=== PATIENT | male | born 1950 | race Caucasian/White ===

== ENCOUNTER 2022-06-13 08:09 | Outpatient (CLI) | payer MEDICARE, SELFPAY ==
[2022-06-13 08:37] LABS: Uric Acid 5.6 mg/dL (3.5-8.5)
[2022-06-13 08:38] LABS: Alanine Aminotransferase 32 U/L (6-50); Albumin Level 3.9 g/dL (3.5-5.1); Alkaline Phosphatase 74 U/L (38-126); Anion Gap 3 mmol/L (8-16); Aspartate Amino Transferase 29 U/L (17-59); Bilirubin,Total 0.7 mg/dL (0.2-1.3); Blood Urea Nitrogen 12 mg/dL (9-20); Carbon Dioxide 30 mmol/L (22-30); Chloride 103 mmol/L (98-107); Cholesterol 177 mg/dL (0-200); Estimated Glomerular Filt Rate > 60; Glucose 98 mg/dL (65-110); HDL Direct 69 mg/dL; Potassium 4.4 mmol/L (3.4-5.0); Sodium 136 mmol/L (137-145); Triglycerides 59 mg/dL (<150)
[2022-06-13 08:50] LABS: LDL Cholesterol Direct 76 mg/dL
== END 2022-06-13 08:10 | disposition home or self-care (01) ==
PROVIDERS: PCP Internal Medicine; Visit Provider Nurse Practitioner
DX: E78.5 Hyperlipidemia, unspecified (principal)
CPT/HCPCS: 36415; 80053; 80061; 84550

== ENCOUNTER 2022-10-02 00:07 | Day surgery (SDC) | payer MEDICARE, SELFPAY ==
[2022-09-21 14:44] VITALS: BMI 26.4
[2022-10-02 09:06] VITALS: BP 154/70; PULSE 83; RESP 19; TEMP 36.2; O2SAT 99
[2022-10-02] MEDS: LACTATED RINGERS 1,000 ML 150 ML IV CONT (09:16)
--- NOTE | 2022-10-02 10:28 | WPDANESEPPF ---
Anes - Initial Pre Proc Eval Procedure: Operation Date: 10/02/22 10:30 Proposed Procedures p Colonoscopy - Daniel Velez MD Date/Time: 10/02/22 10:28 Surgeon: Daniel Velez MD Pre Op Diagnosis: hx colon polyps Patient Data Age: 71 Gender: M Height: 1.68 m Weight: 74.2 kg Last Vital Signs Temp 36.2 C L 10/02/22 09:06 Pulse 83 10/02/22 09:06 Resp 19 10/02/22 09:06 BP 154/70 H 10/02/22 09:06 Pulse Ox 99 10/02/22 09:06 O2 Del Method Room Air 10/02/22 09:06 Allergies Allergy/AdvReac Type Severity Reaction Status Date / Time No Known Allergies Allergy Unverified 10/02/22 09:06 Home Medications Medication Instructions Recorded Confirmed Type aspirin 81 mg tablet,delayed 81 mg PO DAILY 12/26/21 09/21/22 History release (Adult Low Dose Aspirin) cholecalciferol (vitamin D3) 50 50 mcg PO DAILY 12/26/21 09/21/22 History mcg (2,000 unit) capsule finasteride 5 mg tablet 5 mg PO DAILY 06/12/22 09/21/22 History atorvastatin 80 mg tablet 80 mg PO DAILY #90 tabs 09/04/22 09/21/22 Rx valacyclovir 1 gram tablet 1,000 mg PO TID #21 tabs 09/28/22 10/01/22 Rx Patient hx anesthesia problems: none Family hx anesthesia problems: none Results Review: All pre-operative results and documents have been reviewed as part of the pre-operative evaluation. [facility] Past Medical History Medical History Melanoma L lateral abdomen; sees derm Surgical History Surgical History History of prostate biopsy Social History Social History Smoking packs per day: 1 Smoking cigarettes per day: 20.0 Years smoked: 20 Smoking pack-years: 20.00 Smoking status: Former smoker Tobacco type: cigarettes Alcohol intake: current Alcohol use details: 3 drinks/day - beer/wine Substance use: never Substance use type: does not use Living arrangements: with family Spiritual care concerns: No Anes - Eval Final PreProcedure Day of Procedure 10/02/22 10:28 Patient weight: normal Heart: regular rate and rhythm Lungs: clear to auscultation Airway: Mallampati scale class II Neurological: alert and oriented Last oral intake: >/= 8 hours ASA classification: II Emergent: no Anesthetic plan: proceed Anesthesia type and monitoring: general GIVS and standard monitoring Results Review: All pre-operative results and documents have been reviewed as part of the pre-operative evaluation. Informed Consent: The patient's anesthetic plan and its attendant risks and benefits were discussed with the patient/family/POA. Questions were solicited and answers provided to the satisfaction of the patient/family/POA.
--- NOTE | 2022-10-02 10:39 | PM.HPGS ---
History of Present Illness History of Present Illness Consent: Risks, benefits, and alternatives have been discussed and questions answered. Patient agrees to proceed with procedure. Chief complaint: hx colon polyps Narrative: Miguelito Diaz is a 71 year old male with colon polyps ~ 5 years ago, both parents also had colon cancer Review of Systems Constitutional: Constitutional: Denies headache(s) and Denies weakness Eyes: Eyes: Denies blurry vision ENT: Reports Normal hearing present, Denies headache(s) and Denies neck pain Cardiovascular: Cardiovascular: Denies chest pain and Denies dyspnea Respiratory: Respiratory: Denies dyspnea Gastrointestinal: Gastrointestinal: Reports no additional gastrointestinal complaints Genitourinary: Genitourinary: Denies dysuria Musculoskeletal: Musculoskeletal: Denies neck pain Integumentary/Breasts: Skin/Breast: Denies dry skin Neurologic: Reports Normal hearing present, Denies headache(s) and Denies weakness Psychiatric: Psychiatric: Denies anxiety Endocrine: Endocrine: Denies change in body appearance Hematologic/Lymphatic: Hematologic/Lymphatic: Denies easy bleeding Allergic/Immunologic: Allergic/Immunologic: Denies urticaria PMFSH Past Medical History Medical History (Updated 10/02/22 @ 10:40 by Daniel Velez MD) Family history of colon cancer Melanoma L lateral abdomen; sees derm Surgical History Surgical History History of prostate biopsy Social History Social History Smoking packs per day: 1 Smoking cigarettes per day: 20.0 Years smoked: 20 Smoking pack-years: 20.00 Smoking status: Former smoker Tobacco type: cigarettes Alcohol intake: current Alcohol use details: 3 drinks/day - beer/wine Substance use: never Substance use type: does not use Living arrangements: with family Spiritual care concerns: No Meds Home Medications and Allergies Home Medications Medication Instructions Recorded Confirmed Type aspirin 81 mg tablet,delayed 81 mg PO DAILY 12/26/21 09/21/22 History release (Adult Low Dose Aspirin) cholecalciferol (vitamin D3) 50 50 mcg PO DAILY 12/26/21 09/21/22 History mcg (2,000 unit) capsule finasteride 5 mg tablet 5 mg PO DAILY 06/12/22 09/21/22 History atorvastatin 80 mg tablet 80 mg PO DAILY #90 tabs 09/04/22 09/21/22 Rx valacyclovir 1 gram tablet 1,000 mg PO TID #21 tabs 09/28/22 10/01/22 Rx Allergies Allergy/AdvReac Type Severity Reaction Status Date / Time No Known Allergies Allergy Unverified 10/02/22 09:06 Vital Signs Vital Signs - 24 hr 10/02/22 09:06 Temperature 97.1 F L Pulse Rate 83 Respiratory Rate 19 Blood Pressure 154/70 H Pulse Oximetry 99 Oxygen Delivery Room Air Exam Const: General: comfortable and no acute distress HENMT: Face/Nose/Sinus: Normal nares present Eyes: General: appearance normal, both eyes and all related structures Neck: Neck: no JVD Resp: Auscultation: clear to auscultation bilaterally Cardio: Rate: regular rate Rhythm: regular rhythm GI: Inspection: non-distended GI Palp: Yes Soft to palpation Skin: General skin exam: normal color Neuro: General: gait normal Speech: normal speech Extrem: General: normal to inspection Psych: Mental Status: mental status grossly normal Assessment and Plan Assessment and plan (1) History of colon polyps: Code(s): Z86.010 - Personal history of colonic polyps Status: Acute Assessment and Plan: colonoscopy (2) Family history of colon cancer: Code(s): Z80.0 - Family history of malignant neoplasm of digestive organs Status: Acute
[2022-10-02 10:55] VITALS: BP 117/67; PULSE 65; RESP 16; O2SAT 99
[2022-10-02 11:05] VITALS: BP 135/75; PULSE 69; RESP 22; O2SAT 100
== END 2022-10-02 11:25 | disposition home or self-care (01) ==
PROVIDERS: PCP Family Medicine; Visit Provider Internal Medicine Gastroenterology
PROC: 0DJD8ZZ Inspection of Lower Intestinal Tract, Via Natural or Artificial Opening Endoscopic (ICD-10-PCS; CPT 45378; principal; 2022-10-02 10:30)
DX: Z12.11 Encounter for screening for malignant neoplasm of colon (principal); D12.4 Benign neoplasm of descending colon; K57.30 Diverticulosis of large intestine without perforation or abscess without bleeding; K64.8 Other hemorrhoids; Z80.0 Family history of malignant neoplasm of digestive organs; Z79.82 Long term (current) use of aspirin; Z79.899 Other long term (current) drug therapy
CPT/HCPCS: 45380; 88305; J2704; J7120

== ENCOUNTER 2022-10-17 16:07 | Outpatient (CLI) | payer MEDICARE, SELFPAY ==
[2022-10-17 17:41] LABS: Prostate Specific Antigen 3.5 ng/mL (< OR = 4.0)
== END 2022-10-17 16:08 | disposition home or self-care (01) ==
PROVIDERS: PCP Family Medicine; Visit Provider Urology
DX: R97.20 Elevated prostate specific antigen [PSA] (principal)
CPT/HCPCS: 36415; 84153

== ENCOUNTER 2022-12-27 07:58 | Outpatient (CLI) | payer MEDICARE, SELFPAY ==
[2022-12-27 08:26] LABS: Hematocrit 41.9 % (42.0-52.0); Hemoglobin 14.1 g/dL (14.0-18.0); Mean Corpuscular HGB Conc 33.7 g/dl (32-36); Mean Corpuscular Hemoglobin 32.7 pg (26-34); Mean Corpuscular Volume 97.2 fl (80-100); Mean Platelet Volume 9.5 fl (7.4-10.4); Platelet Count Result 279 k/mm3 (150-375); Red Blood Count 4.31 M/mm3 (4.6-6.20); Red Cell Distribution Width 12.6 % (11.5-14.5); White Blood Count 5.8 K/mm3 (4.5-10.0)
[2022-12-27 09:08] LABS: Alanine Aminotransferase 31 U/L (6-50); Albumin Level 4.1 g/dL (3.5-5.1); Alkaline Phosphatase 69 U/L (38-126); Anion Gap 5 mmol/L (8-16); Aspartate Amino Transferase 33 U/L (17-59); Bilirubin,Total 0.6 mg/dL (0.2-1.3); Blood Urea Nitrogen 18 mg/dL (9-20); Carbon Dioxide 27 mmol/L (22-30); Chloride 105 mmol/L (98-107); Estimated Glomerular Filt Rate > 60; Glucose 97 mg/dL (65-110); Potassium 4.2 mmol/L (3.4-5.0); Sodium 137 mmol/L (137-145)
== END 2022-12-27 07:59 | disposition home or self-care (01) ==
PROVIDERS: PCP Family Medicine; Visit Provider Family Medicine
DX: E78.5 Hyperlipidemia, unspecified (principal); N40.0 Benign prostatic hyperplasia without lower urinary tract symptoms; Z87.891 Personal history of nicotine dependence
CPT/HCPCS: 36415; 80053; 85027

== ENCOUNTER 2023-01-02 08:26 | Outpatient (CLI) | payer MEDICARE, SELFPAY ==
--- NOTE | ~2023-01-02 | US_ITS ---
EXAMINATION: US aorta [facility] scrn DATE: 01/02/2023 15:01 CDT INDICATION: Personal history of nicotine dependence TECHNIQUE: Grayscale, color Doppler, and pulsed Doppler images of the aorta and common iliac arteries were obtained. COMPARISON: None. FINDINGS: Incidental note is made of a 1.9 x 1.2 x 2 cm hypoechoic liver mass. There is fatty infiltration of t he liver. The proximal aorta measures 2.2 cm greatest sagittal dimension. The mid aorta measures 2.1 cm greates t sagittal dimension. The distal aorta measures 2.1 cm greatest sagittal dimension. The right common internal iliac artery measures 1.5 cm. The left common iliac artery measures 1.4 cm. IMPRESSION: 1. Normal caliber aorta without aneurysm. 2: Hypoechoic liver mass incidentally noted measuring [address] or MRI without and w ith contrast recommended. Reviewed, dictated and finalized at location A. IMPRESSION: 1. Normal caliber aorta without aneurysm. 2: Hypoechoic liver mass incidentally noted measuring 2 cm. Correlation with C T or MRI without and with contrast recommended.
--- NOTE | ~2023-01-02 | CT_ITS ---
CT Scan of the Chest without Contrast: Clinical Indication: Lung cancer screening, personal history of nicotine dependence Technique: Contiguous sections were acquired throughout the chest without intravenous contrast. Dose reduction technique was used on this scan by utilizing automated exposure control and iterative recon struction technique. The dose-length product (DLP) was 103.79 mGy-cm. Findings: There is no evidence of any significant mediastinal, hilar or axillary lymphadenopathy. Coronary brock ry calcifications are present. There is no evidence of pleural or pericardial effusion. The lungs are clear. No pulmonary nodules or infiltrates are noted. Images through the upper abdomen reveal calcified gallstone. Impression: Lung RADS 1: Negative. 12 month follow-up screening CT advised. Cholelithiasis. Reviewed, dictated and finalized at location . Impression: Lung RADS 1: Negative. 12 month follow-up screening CT advised. Cholelithiasis.
== END 2023-01-02 08:27 | disposition home or self-care (01) ==
PROVIDERS: PCP Family Medicine; Visit Provider Family Medicine
DX: Z12.2 Encounter for screening for malignant neoplasm of respiratory organs (principal); R16.0 Hepatomegaly, not elsewhere classified; K80.20 Calculus of gallbladder without cholecystitis without obstruction; N40.0 Benign prostatic hyperplasia without lower urinary tract symptoms; Z87.891 Personal history of nicotine dependence
CPT/HCPCS: 71271; 76706

== ENCOUNTER 2023-01-09 14:30 | Outpatient (CLI) | payer MEDICARE, SELFPAY ==
--- NOTE | ~2023-01-09 | CT_ITS ---
EXAMINATION: CT abdomen wo/w con DATE: 01/09/2023 14:59 INDICATION: Liver mass. Melanoma. TECHNIQUE: Computed tomography (CT) of the abdomen was performed without and with 100 mL Omnipaque 35 0 intravenous contrast. Automated exposure control and iterative reconstruction technique were employ ed. The dose-length product was 895.13 mGy-cm. COMPARISON: Chest CT 01/02/2023 FINDINGS: The visualized portions of the lung bases demonstrate minimal scarring in paraspinal right lower lobe. No pleural effusion. The heart size is normal. There are coronary artery calcifications. No pericardial effusion. There is diffuse hepatic steatosis with focal sparing in the gallbladder fos sa. There is a 7 mm arterially hyperenhancing mass in left hepatic lobe. There is a 1.8 cm arterially hyperenhancing mass in left hepatic lobe. No washout. There is a gallstone in the gallbladder, which is normal in size. The spleen, pancreas, and adrenal glands are normal. There are cysts in the kidne ys measuring up to 8 mm on the right. Aortic atherosclerosis is noted. There is moderate lumbar spond ylosis. There is mild thoracic spondylosis. IMPRESSION: 1. Two hyperenhancing liver masses with the larger measuring 1.8 cm. The differential diagnosis inclu jagdeep hemangiomas, focal nodular hyperplasia, transient hepatic attenuation difference, and metastatic melanoma. If there is no outside comparison imaging, consider PET/CT or ultrasound-guided core needle biopsy. 2. Diffuse hepatic steatosis. Reviewed, dictated and finalized at location B. IMPRESSION: 1. Two hyperenhancing liver masses with the larger measuring 1.8 cm. The differ ential diagnosis includes hemangiomas, focal nodular hyperplasia, transient hep atic attenuation difference, and metastatic melanoma. If there is no outside co mparison imaging, consider PET/CT or ultrasound-guided core needle biopsy. 2. Diffuse hepatic steatosis.
== END 2023-01-09 14:31 | disposition home or self-care (01) ==
PROVIDERS: PCP Family Medicine; Visit Provider Family Medicine
DX: R16.0 Hepatomegaly, not elsewhere classified (principal); K76.0 Fatty (change of) liver, not elsewhere classified
CPT/HCPCS: 74170; Q9967

== ENCOUNTER 2023-01-29 09:00 | Outpatient (CLI) | payer MEDICARE, SELFPAY ==
[2023-01-17 10:52] VITALS: BMI 27.1
--- NOTE | 2023-01-17 10:56 | PC.NURSE ---
Pre Radiology instructions Report to the outpatient marah brewer on date __01/29/23___ at time __0900 for procedure Time: __1100__ YOU MAY BE MONITORED AT HOSPITAL FOR UP TO 4 HOURS AFTER YOUR PROCEDURE. A visitor will be allowed to accompany the patient into the hospital. You and your visitor will be asked to self-screen and do not enter if you have any COVID symptoms. A mask is OPTIONAL within the hospital. Patients are to have no food or drink 6 hours prior to procedure time (0300 AM) Driving will be restricted after the procedure, you must have a person to drive you home. Labs will be drawn in preop area and once reviewed, you will be taken to radiology area for procedure. When the procedure is completed, you will be taken to outpatient where you will be monitored for several hours. You may have one visitor in this area. Other than holding anti-coagulants, patient may take other medication(s) as scheduled. Prior to your appointment date patients are instructed to hold anti-coagulants after discussing with ordering provider to stop. If unable to discontinue anti-coagulants please notify radiologist. ? No aspirin or warfarin (Coumadin) for 7 days prior to the procedure. ? No clopidogrel (Plavix), ticagrelor (Brilinta), prasugrel (Effient) or dabigatran (Pradaxa) for 5 days prior to the procedure. ? No rivaroxaban (Xarelto), apixaban (Eliquis), dipyridamole (Aggrenox or Persantine) or cilostazol (Pletal) for 2 days prior to the procedure. Medications to discontinue per physician: __ASPIRIN Date to take last dose: ___01/21/23 Please leave all valuables, including medications, at home the day of procedure. The hospital will not accept responsibility for valuables. Wear comfortable, loose fitting clothing.? Follow any additional instructions given to you from ordering provider. Telephone instructions given to PATIENT and asked if any additional questions and then verbalized understanding. Patient advised to call scheduling provider office or registration scheduling [phone] if any additional questions.
[2023-01-29] VITALS (10 sets, daily range): BP systolic 116–153; BP diastolic 63–79; PULSE 50–59; RESP 14–16; TEMP 36.1; O2SAT 98–100
--- NOTE | ~2023-01-29 | CT_ITS ---
EXAMINATION: CT biopsy liver DATE: 01/29/2023 10:55 INDICATION: Liver mass. TECHNIQUE: The procedure including the risks, benefits, and alternatives was discussed with the patie nt. Risks discussed included bleeding and infection. The patient verbalized understanding of the risk s and agreed to proceed. The skin overlying the liver was prepped and draped in usual sterile fashio n. Anesthetic was administered with 1% lidocaine subcutaneously. A 19 gauge outer needle was advanc ed under CT guidance into the liver. An 20 gauge core biopsy needle was then used to obtain 4 core bi opsy specimens. The mA was adjusted according to patient size. Iterative reconstruction technique was employed. The dose-length product was 133.01 mGy-cm. The needle was removed and the entry site was c leaned and dressed. There were no immediate complications. FINDINGS: CT images demonstrate the outer needle tip adjacent to the left hepatic lobe. The liver mas s is occult on noncontrast CT. IMPRESSION: 1. CT-guided core needle biopsy of an occult liver mass using landmarks. Reviewed, dictated and finalized at location A.
[2023-01-29 09:37] LABS: Mean Platelet Volume 9.6 fl (7.4-10.4); Platelet Count Result 245 k/mm3 (150-375)
[2023-01-29 09:47] LABS: INR 0.9; Prothrombin Time 12.7 Seconds (11.1-14.7)
== END 2023-01-29 13:45 | disposition home or self-care (01) ==
PROVIDERS: PCP Family Medicine; Visit Provider Radiology Diagnostic Radiology
DX: R16.0 Hepatomegaly, not elsewhere classified (principal)
CPT/HCPCS: 36415; 47000; 77012; 85049; 85610; 88307; 88342

== ENCOUNTER 2023-07-01 13:03 | Emergency (ER) | payer MEDICARE, SELFPAY ==
--- NOTE | ~2023-07-01 | XR_ITS ---
[XR ribs LT 2V ] INDICATION: Left rib pain after fall TECHNIQUE: Frontal projection of the upper left ribs, frontal projection of the lower left ribs, obli que projection of all the ribs, frontal inspiratory chest x-ray for interpretation. FINDINGS: There is an acute nondisplaced left sixth rib fracture. There are no soft tissue abnormalit y seen. The lungs are clear. IMPRESSION: 1: Acute nondisplaced left sixth rib fracture. Reviewed, dictated and finalized at location B. [employer]
[2023-07-01 13:22] VITALS: BP 153/75; PULSE 78; RESP 16; TEMP 36.6; O2SAT 100
--- NOTE | 2023-07-01 15:05 | PC.NURSE ---
Pt c/o left rib pain that started after falling this morning. Denies LOC. Takes 81mg ASA daily
--- NOTE | 2023-07-01 15:15 | ED.FALL ---
HPI - Fall General Chief Complaint: Fall Stated Complaint: fall, rib pain Time Seen by Provider: 07/01/23 15:14 1510 Miguelito is a 72-year-old male patient presenting to the ER for a fall this morning around 930. Patient reports he slipped on the ice. Is complaining of posterior left rib pain. States that he is also having spasms and pain with respirations. Source: patient Mode of arrival: ambulatory Limitations: no limitations Related Data Home Medications Medication Instructions Recorded Confirmed aspirin 81 mg tablet,delayed 81 mg PO DAILY 12/26/21 04/30/23 release (Adult Low Dose Aspirin) cholecalciferol (vitamin D3) 50 50 mcg PO DAILY 12/26/21 04/30/23 mcg (2,000 unit) capsule finasteride 5 mg tablet 5 mg PO DAILY 06/12/22 04/30/23 Allergies Allergy/AdvReac Type Severity Reaction Status Date / Time No Known Allergies Allergy Verified 04/30/23 13:01 Review of Systems Review of Systems: Pertinent positives per HPI. Patient denies any fever, chills, rash, headache, visual changes, dizziness, cough, runny nose, sore throat, shortness of breath, chest pain, palpitations, nausea, vomiting, diarrhea, constipation, abdominal pain, or any urinary issues. [facility] Past Medical History Medical History Family history of colon cancer History of melanoma Melanoma L lateral abdomen; sees derm Surgical History Surgical History History of prostate biopsy Social History Social History Smoking packs per day: 1 Smoking cigarettes per day: 20.0 Years smoked: 20 Smoking pack-years: 20.00 Smoking status: Former smoker Tobacco type: cigarettes Alcohol intake: current Drinks per week: 25 Alcohol use details: 3 drinks/day - beer/wine Substance use: never Substance use type: does not use Lack of Transportation: No Lack of Food: Never True Current Housing: I Have Housing Concerned About Future Housing: No Difficulty Paying Gas/Electric Bills: No Difficulty Paying for Meds: No Currently Unemployed: No Education: Bachelor's Degree Difficulty w/ Childcare or Family Care: No Living arrangements: with family Gender identity (if verbalized by the patient): Male Spiritual care concerns: No Comments At the time of my signature, I reviewed and agree with the nursing past medical, surgical, social, and family history. There is no relevant family history pertinent to the patient complaint. Exam Narrative: General: Well-developed, well nourished, in no apparent distress Head: Normocephalic, atraumatic. Chest wall: Symmetric, no bruising or swelling noted, even rise and fall of the chest wall with respirations, tenderness to palpation over the posterior 6/7 left ribs Cardio: Regular rate and rhythm, s1 and s2 normal, no murmur appreciated. Resp: Clear to auscultation bilaterally, no rhonchi, rales, wheezing or rubs. Musculoskeletal: No deformity, nontender over the head or C-spine, grossly normal range of motion, muscle strength strong and equal, peripheral pulse strong, no edema, no cyanosis, normal gait and station Course Course Emergency Course: Portions of this record may have been created with voice recognition software. Vital Signs Vital signs: Vital Signs Temperature 36.6 C 07/01/23 13:22 Pulse Rate 78 07/01/23 13:22 Respiratory Rate 16 07/01/23 13:22 Blood Pressure 153/75 H 07/01/23 13:22 Pulse Oximetry 100 07/01/23 13:22 Oxygen Delivery Room Air 07/01/23 13:22 Temperature 36.8 C 07/01/23 15:38 Pulse Rate 84 07/01/23 15:38 Respiratory Rate 16 07/01/23 15:38 Blood Pressure 135/74 07/01/23 15:38 Pulse Oximetry 98 07/01/23 15:38 Oxygen Delivery Room Air 07/01/23 13:22 Vital signs reviewed MDM - Fall MDM Narrative Medical decision everett
[2023-07-01 15:38] VITALS: BP 135/74; PULSE 84; RESP 16; TEMP 36.8; O2SAT 98
== END 2023-07-01 15:40 | disposition home or self-care (01) ==
LOC: ANHED 15:32
PROVIDERS: Emergency Provider Nurse Practitioner Family; PCP Internal Medicine
DX: S22.32XA Fracture of one rib, left side, initial encounter for closed fracture (principal); Z85.820 Personal history of malignant melanoma of skin; Z87.891 Personal history of nicotine dependence; Z79.82 Long term (current) use of aspirin; W00.0XXA Fall on same level due to ice and snow, initial encounter
CPT/HCPCS: 71100; 99283

== ENCOUNTER 2023-07-08 08:18 | Outpatient (CLI) | payer MEDICARE, SELFPAY ==
[2023-07-08 09:36] LABS: Cholesterol 259 mg/dL (0-200); HDL Direct 72 mg/dL; Triglycerides 69 mg/dL (<150)
[2023-07-08 09:47] LABS: LDL Cholesterol Direct 143 mg/dL
[2023-07-11 05:46] LABS: Apolipoprotein B 123 mg/dL (<90)
== END 2023-07-08 08:19 | disposition home or self-care (01) ==
LOC: ANHLAB 08:20
PROVIDERS: PCP Internal Medicine; Visit Provider Internal Medicine
DX: R16.0 Hepatomegaly, not elsewhere classified (principal); E78.5 Hyperlipidemia, unspecified
CPT/HCPCS: 36415; 80061; 82172

== ENCOUNTER 2023-10-31 09:12 | Outpatient (CLI) | payer MEDICARE, SELFPAY ==
[2023-10-31 11:00] LABS: Prostate Specific Antigen 2.9 ng/mL (< OR = 4.0)
== END 2023-10-31 09:13 | disposition home or self-care (01) ==
LOC: ANHLAB 09:16
PROVIDERS: PCP Internal Medicine; Visit Provider Urology
DX: R97.20 Elevated prostate specific antigen [PSA] (principal)
CPT/HCPCS: 36415; 84153

== ENCOUNTER 2024-07-06 07:58 | Outpatient (CLI) | payer MEDICARE, SELFPAY ==
--- OUTSIDE RECORDS SUMMARY | 2024-07-06 08:04 | XMS_ITS | Clinical Summary ---
Author Organization [facility] Medical Office Building [address] Address [address] [place] [address] Care Team Providers Care Fine Jewelry Sales Associate Name Role Phone Fede Mcgill DO Primary Care Provider [phone] Allergies No known active allergies Medications aspirin 81 MG oral suspension Take 81 mL (81 mg total) by mouth once 12/13/1999 Active cholecalciferol (Vitamin D3) 2000 unit capsule 1 capsule (2,000 Units total) daily 07/07/2020 Active finasteride (PROSCAR) 5 mg tablet Take 1 tablet (5 mg total) by mouth daily 01/23/2022 Active atorvastatin (LIPITOR) 10 mg tablet Take 1 tablet (10 mg total) by mouth daily Active Active Problems Problem Noted Date Diagnosed Date Other hyperlipidemia 04/15/2023 Benign prostatic hyperplasia without lower urinary tract symptoms 04/15/2023 Malignant melanoma of torso excluding breast 11/2022 Social History Tobacco Use Types Packs/Day Years Used Date Smoking Tobacco: Former Cigarettes Smokeless Tobacco: Never Tobacco Cessation:Counseling Given: Not Answered Personal Safety Answer Date Recorded Getting School Help Needed Not on file 07/15 Sex and Gender Information Value Date Recorded Sex Assigned at Not on file Legal Sex Male 1:58 PM CDT Gender Identity Not on file Sexual Orientation Not on file Obstetrics History Last Filed Vital Signs Vital Sign Reading Time Taken Comments Blood Pressure 138/82 11/25/2023 11:39 AM CDT Pulse 71 11/25/2023 11:39 AM CDT Temperature 36.3 ??C (97.4 ??F) 11/25/2023 11:39 AM C DT Respiratory Rate - - Oxygen Saturation 98% 11/25/2023 11:39 AM CDT Inhaled Oxygen Concentration - - Weight 75.8 kg (167 lb) 11/25/2023 11:39 AM CDT Height 165.1 cm (5' 5 ) 11/25/2023 11:39 AM CDT Body Mass Index 27.79 11/25/2023 11:39 AM CDT Plan of Treatment Health Maintenance Due Date Last Done Comments Colon Cancer Screening-Colonoscopy 1950 Depression Screening 1950 Fall Risk Assessment 1950 DTaP/Tdap/Td Vaccine (1 - Tdap) 12/13/1961 Abdominal Aortic Aneurysm (A AA) Screen 2013 Well Visit 65+ 2013 Zoster Vaccine (2 of 3) 02/14/2023 12/20/2022 Covid-19 Vaccine ( season) 2024 03/14/2023, 04/23/2022, 10/16/2021 Influenza Vaccine (#1) 2024 , 04/18/2022, 03/20/2021 Pneumococcal vaccine 65+ Completed 07/27/2022 Hepatitis B Screening Completed 04/15/2023 Hepatitis C Screening Completed 04/15/2023 Procedures Procedure Name Priority Date/Time Associated Diagnosis Comments HEPATITIS C ANTIBODY Routine 04/15/2023 10:08 AM DISPLAY CARD WRITER Liver lesion from Last 3 Months or Most Recently Relevant to Health Maintenance Results * Hepatitis C antibody Blood (04/15/2023 10:08 AM DISPLAY CARD WRITER) Hep C Ab Nonreactive Nonreactive [facility] Comment:Antibodies to HCV no t detected. Does NOT exclude the possibility of recent exposure to HCV. Current interpretive data was last revised on 22 Blood 04/15/2023 10:0 8 AM DISPLAY CARD WRITER 04/15/2023 10:31 AM DISPLAY CARD WRITER us Amira Cabrera MD LAB MICROBIOLOGY - GENE RAL ORDERABLES Final Result [facility] [place] [address] from Last 3 Months or Most Recently Relevant to Health Maintenance Insurance [facility] MEDICARE MEDICARE [facility] Care Teams Fine Jewelry Sales Associate Relationship Specialty Start Date End Date Fede Mcgill DO PCP - General Internal Medicine 07/22/23
--- OUTSIDE RECORDS SUMMARY | 2024-07-06 08:04 | XMS_ITS | Encounter Summary ---
Author Organization [facility] Health Address [address] [place] [address] Care Team Providers Care Information Security Associate Name Role Phone Unavailable Primary Care Provider Unavailabl e Encounter Details Date Type Department Care Team (Late st Contact Info) Description 02/01/2023 Lab Requisition [facility] - Pathology Lab [address] [place] [id number] Sliver Bright MD [address] [place] [address] Illness, unspecified Social History Tobacco Use Types Packs/Day Years Used Date Smoking Tobacco: Never Assessed Sex and Gender Information Value Date Recorded Sex Assigned at Not on file Gender Identity Not on file Sexual Orientation Not on file documented as of this encounter Plan of Treatment Not on file documented as of this encounter Procedures Procedure Name Priority Date/Time Associated Diagnosis Comments SLIDE PREP HISTOLOGY Routine 02/01/2023 8:44 AM CDT Illness, unspecified documented in this encounter Results * SLIDE PREP HISTOLOGY (02/01/2023 8:44 AM CDT) Client Specimen ID # [id number] 02/19/2023 1:48 PM CDT [facility] Number of Blocks Received 0 02/19/2023 1:48 PM CDT [facility] Number of Slides 1 02/19/2023 1:48 PM CDT [facility] Number of Control Slides 1 02/19/2023 1:48 PM CDT [facility] Pathology/Cytolo gy NEEDLE BIOPSY OF LIVER / Unknown 02/01/2023 8:44 AM CDT 02/01/2023 8:45 AM CDT Silver Bright MD LAB - PATHOLOGY/CYTO LOGY ORDERABLES [facility] [address] [facility] [facility] [place], [place] [id number] [place] [address] documented in this encounter Visit Diagnoses Diagnosis Illness, unspecified documented in this encounter
--- OUTSIDE RECORDS SUMMARY | 2024-07-06 08:04 | XMS_ITS | Referral Summary ---
Author Organization [facility] Address [address] [place] [address] Care Team Providers Care Auto Radio Mechanic Name Role Phone Unavailable Primary Care Provider Unavailabl e Source Comments [facility],non-owned Affiliates and Associated Physician Practices is amultiple site organization consisting of ambulatory clinics and hospital sitesin [place], [place], [place] and [place]. This disclosure is being madepursuant to the Care Everywhere program and may not contain all information available regarding this patient. Last updated 18.[facility] [employer] Social History Tobacco Use Types Packs/Day Years Used Date Smoking Tobacco: Never Assessed Sex and Gender Information Value Date Recorded Sex Assigned at Not on file Gender Identity Not on file Sexual Orientation Not on file Plan of Treatment Not on file MIGUELITO YADAV Personal/Famil y Spouse [address] [place] [id number] MIGUELITO YADAV Personal/Famil y Spouse [address] [place] [address] Miguelito Yadav Personal/Famil y Self 1950 [address] [facility] [place] [address]
--- OUTSIDE RECORDS SUMMARY | 2024-07-06 08:04 | XMS_ITS | Referral Summary ---
Author Organization [facility] Medical Office Building [address] Address [address] [place] [address] Care Team Providers Care Heel Seat Fitter Machine Name Role Phone Fede Mcgill DO Primary Care Provider [phone] Allergies No known active allergies Medications aspirin [...] on file Sexual Orientation Not on file Last Filed Vital Signs Vital Sign Reading [...] 11/25/2023 11:39 AM CDT Plan of Treatment Not on file Procedures Procedure Name Priority Date/Time Associated Diagnosis Comments HEPATITIS C ANTIBODY Routine 04/15/2023 10:08 AM ANIMAL NURSE Liver lesion from Last 3 Months or Most Recently Relevant to Health Maintenance Results * Hepatitis C antibody Blood (04/15/2023 10:08 AM ANIMAL NURSE) Hep C Ab Nonreactive Nonreactive MATY GILBERT Comment:Antibodies to HCV no t detected. Does NOT exclude the possibility of recent exposure to HCV. Current interpretive data was last revised on 22 Blood 04/15/2023 10:0 8 AM ANIMAL NURSE 04/15/2023 10:31 AM ANIMAL NURSE Amira Cabrera MD LAB MICROBIOLOGY - [facility] ORDERABLES Final Result [facility] Department [place] [address] from Last 3 Months or Most Recently Relevant to Health Maintenance Insurance [facility] MEDICARE MEDICARE [facility] Care Teams Heel Seat Fitter Machine Relationship Specialty Start Date End Date Fede Mcgill DO PCP - General Internal Medicine 07/22/23
--- OUTSIDE RECORDS SUMMARY | 2024-07-06 08:04 | XMS_ITS | Clinical Summary ---
Author Organization [facility] Address [address] [place] [address] Care Team Providers Care Emissions Repair Technician Name Role Phone Unavailable Primary Care Provider Unavailabl e Source Comments [facility],non-owned Affiliates and Associated Physician Practices is amultiple site organization consisting of ambulatory clinics and hospital sitesin [place], [place], [place] and [place]. This disclosure is being madepursuant to the Care Everywhere program and may not contain all information available regarding this patient. Last updated 18.[facility] Social History Tobacco Use Types Packs/Day Years Used Date Smoking Tobacco: Never Assessed Sex and Gender Information Value Date Recorded Sex Assigned at Not on file Gender Identity Not on file Sexual Orientation Not on file Plan of Treatment Health Maintenance Due Date Last Done Comments COLOGUARD (AGES 45-75) - COL ON CA SCREENING 1950 COLON MONITORING 1948 COLONOSCOPY - COLON CA SCREENING 1948 CT COLONOGRAPHY - COLON CA SCREENING 1950 Colorectal Cancer Screening 1948 FIT - COLON CA SCREENING 1948 FLEX SIG - COLON CA SCREENING 1948 LIPID TESTING 1950 MEDICARE AWV ? 12 MONTHS 1950 HEPATITIS C SCREENING 12/08/1966 DTAP/TDAP/TD VACCINES (1 - Tdap) 12/13/1967 PNEUMOCOCCAL VACCINE 50+ (1 of 1 - PCV) 1998 ZOSTER VACCINE (1 of 2) 1998 Respiratory Syncytial Virus (RSV) Vaccine Pt: or over 60 yrs (1 - 1-dose 75+ series) 12/13/2023 COVID-19 VACCINE ( - 2023-2 5 season) 2024 INFLUENZA VACCINE (#1) 2024 DEPRESSION SCREENING 06/10/2024 HEPATITIS B VACCINE Aged Out No longe r eligible based on patient's age to complete this topic HIB VACCINE Aged Out No longer eligi ble based on patient's age to complete this topic HPV VACCINE Aged Out No longer eligi ble based on patient's age to complete this topic MENINGOCOCCAL (Group B) VACCINE Aged Out No longer eligible based on patient's age to complete this topic MENINGOCOCCAL VACCINE Aged Out No katie jaime eligible based on patient's age to complete this topic MIGUELITO YADAV Personal/Famil y Spouse [address] [place] [id number] MIGUELITO YADAV Personal/Famil y Spouse [address] [place] [id number] Miguelito Yadav Personal/Famil y Self 1950 [address] [place] [address]
--- OUTSIDE RECORDS SUMMARY | 2024-07-06 08:04 | XMS_ITS | Patient Health Summary ---
Author Organization [facility] Address [address] [place] [address] Care Team Providers Care Powder Mixer Name Role Phone Unavailable Primary Care Provider Unavailabl e Note from [facility],non-owned Affiliates and Associated Physician Practices is amultiple site organization consisting of ambulatory clinics and hospital sitesin [place], [place], [place] and [place]. This disclosure is being madepursuant to the Care Everywhere program and may not contain all information available regarding this patient. Last updated 18.[facility] Social History Tobacco Use Types Packs/Day Years Used Date Smoking Tobacco: Never Assessed Sex and Gender Information Value Date Recorded Sex Assigned at Not on file Gender Identity Not on file Sexual Orientation Not on file Procedures * SLIDE PREP HISTOLOGY(Performed 02/01/2023) Performed for Illness, unspecified Results * SLIDE PREP HISTOLOGY (02/01/2023 8:44 AM CDT) Client Specimen ID # [id number] 02/19/2023 1:48 PM CDT [facility] Number of Blocks Received 0 02/19/2023 1:48 PM CDT [facility] Number of Slides 1 02/19/2023 1:48 PM CDT [facility] Number of Control Slides 1 02/19/2023 1:48 PM CDT [facility] Pathology/Cytolo gy NEEDLE BIOPSY OF LIVER / Unknown 02/01/2023 8:44 AM CDT 02/01/2023 8:45 AM CDT Silver Bright MD LAB - PATHOLOGY/CYTO LOGY ORDERABLES [facility] [address] [place], [place] [address] [phone]
[2024-07-06 09:07] LABS: Basophils Absolute Auto 0.1 K/mm3 (0.0-0.1); Basophils Percent Auto 1.1 % (0.2-1.2); Eosinophils Absolute Auto 0.2 K/mm3 (0-0.3); Eosinophils Percent Auto 3.2 % (0-4.4); Hematocrit 42.8 % (42.0-52.0); Hemoglobin 14.4 g/dL (14.0-18.0); Immature Granulocyte Absolute 0.03 K/mm3 (0.00-0.031); Immature Granulocyte Percent A 0.5 % (0-0.5); Lymphocytes Absolute Auto 2.08 K/mm3 (0.9-3.2); Lymphocytes Percent Auto 31.9 % (18.3-44.2); Mean Corpuscular HGB Conc 33.6 g/dl (32-36); Mean Corpuscular Hemoglobin 32.4 pg (26-34); Mean Corpuscular Volume 96.4 fl (80-100); Mean Platelet Volume 9.5 fl (7.4-10.4); Monocytes Absolute Auto 0.5 K/mm3 (0.1-0.6); Monocytes Percent Auto 7.8 % (2.6-8.5); Neutrophils Absolute Auto 3.6 K/mm3 (1.3-6.7); Neutrophils Percent Auto 55.5 % (45.5-73.1); Platelet Count Result 249 k/mm3 (150-375); Red Blood Count 4.44 M/mm3 (4.6-6.20); Red Cell Distribution Width 12.6 % (11.5-14.5); White Blood Count 6.5 K/mm3 (4.5-10.0)
[2024-07-06 09:22] LABS: Alanine Aminotransferase 32 U/L (6-50); Albumin Level 3.7 g/dL (3.5-5.1); Alkaline Phosphatase 63 U/L (38-126); Anion Gap 5 mmol/L (4-12); Aspartate Amino Transferase 27 U/L (17-59); Bilirubin,Total 0.6 mg/dL (0.2-1.3); Blood Urea Nitrogen 15 mg/dL (9-20); Calcium 9.1 mg/dL (8.4-10.2); Carbon Dioxide 28 mmol/L (22-30); Chloride 104 mmol/L (98-107); Cholesterol 207 mg/dL (0-200); Estimated Glomerular Filt Rate > 60; Glucose 106 mg/dL (65-110); HDL Direct 89 mg/dL; Potassium 4.2 mmol/L (3.4-5.0); Sodium 137 mmol/L (137-145); Triglycerides 54 mg/dL (<150)
[2024-07-06 09:33] LABS: LDL Cholesterol Direct 100 mg/dL
[2024-07-06 09:50] LABS: Prostate Specific Antigen 2.2 ng/mL (< OR = 4.0)
[2024-07-06 09:55] LABS: Vitamin D 25 Hydroxy 67.3 ng/mL
[2024-07-07 10:51] LABS: Iron 125 ug/dL (49-181)
[2024-07-07 11:01] LABS: Percent Iron Saturation 44 % (20-50)
== END 2024-07-06 07:59 | disposition home or self-care (01) ==
PROVIDERS: PCP Internal Medicine; Visit Provider Nurse Practitioner
DX: R74.8 Abnormal levels of other serum enzymes (principal); R74.01 Elevation of levels of liver transaminase levels; E78.5 Hyperlipidemia, unspecified; R16.0 Hepatomegaly, not elsewhere classified; E55.9 Vitamin D deficiency, unspecified; Z12.5 Encounter for screening for malignant neoplasm of prostate
CPT/HCPCS: 36415; 80053; 80061; 82306; 82728; 83540; 83550; 84153; 85025; G0103